=== PATIENT | female | born 1955 | race Caucasian/White ===

== ENCOUNTER 2019-03-05 20:07 | Emergency (ER) | payer OTHER ==
[~2019-03-05] VITALS: Ht 157.5 cm; Wt 59.0 kg
[~2019-03-05 20:07] MED LIST: CLONIDINE0.1 PO; DOXEPIN 50MG CA50 M1 PO; GABAPENTIN 100100 MG PO; IMITREX100 MG PO; ZANAFLEX4 MG PO; ZOFRAN ODT4 M1 PO
[2019-03-05] MEDS ORDERED: SYNTHROID137 MC1 PO (21:31)
[2019-03-05] MEDS ORDERED: LISINOPRIL20 MG PO (21:31)
[2019-03-05] MEDS ORDERED: LISINOPRIL10 MG PO (21:32)
[2019-03-05] MEDS ORDERED: HYDROCHLOROTH12.5 M1 PO (21:32)
[2019-03-05] MEDS ORDERED: DOXYCYCLINE 10100 MG PO (21:33)
[2019-03-05] MEDS ORDERED: OXCARBAZEPINE300 MG PO (21:52)
[2019-03-05 22:36] VITALS: BP 117/70
== END 2019-03-05 22:42 | disposition home or self-care (01) ==
LOC: ER 20:07
DX: G50.0 Trigeminal neuralgia (principal); G43.909 Migraine, unspecified, not intractable, without status migrainosus

== ENCOUNTER 2019-04-06 10:31 | Emergency (ER) | payer OTHER ==
[~2019-04-06] VITALS: Ht 210.8 cm; Wt 57.6 kg
[~2019-04-06 10:31] MED LIST changes: +DOXYCYCLINE 10100 MG PO; +HYDROCHLOROTH12.5 M1 PO; +LISINOPRIL10 MG PO; +LISINOPRIL20 MG PO; +OXCARBAZEPINE300 MG PO; +SYNTHROID137 MC1 PO
[2019-04-06 10:51] LABS: ABSOLUTE NEUTROPHILS 4.1 thou/uL (1.4-8.2); BASOPHILS 1.2 % (0.0-2.0); EOSINOPHILS 0.7 % (0.0-3.0); HEMATOCRIT 44.5 % (37.0-47.0); HEMOGLOBIN 14.9 gm/dL (12.0-15.0); LYMPHOCYTES 32.6 % (24.0-44.0); MCH 30.9 pg (26.0-34.0); MCHC 33.4 g/dL (28.0-37.0); MCV 92.4 fL (80.0-100.0); MONOCYTES 9.5 % (1.0-8.0); PLATELET COUNT 236 thou/uL (150-400); RBC 4.82 mil/uL (4.20-5.00); RDW 13.2 % (10.5-14.5); WBC 7.3 thou/uL (4.0-11.0)
[2019-04-06] MEDS ORDERED: ZESTORETIC 10-1 EACH PO (10:56)
[2019-04-06 11:03] LABS: ANION GAP 10 mmol/L (7-16); BUN 13 mg/dL (7-18); CHLORIDE 99 mmol/L (98-107); CO2 25 mmol/L (21-32); CREATININE 1.5 mg/dL (0.6-1.0); GLUCOSE 139 mg/dL (74-106); POTASSIUM 4.2 mmol/L (3.5-5.1); SODIUM 134 mmol/L (136-145)
[2019-04-06 11:07] LABS: TROPONIN-I <0.06 ng/mL (<0.06)
[2019-04-06 11:44] VITALS: BP 122/68
--- NOTE | 2019-04-06 15:29 | EKG ---
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
--- NOTE | 2019-04-07 08:11 | EKG ---
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
== END 2019-04-06 12:02 | disposition home or self-care (01) ==
LOC: ER 10:31
PROVIDERS: Emergency Medicine
DX: I47.1 Supraventricular tachycardia (principal); G43.909 Migraine, unspecified, not intractable, without status migrainosus; I10 Essential (primary) hypertension; E03.9 Hypothyroidism, unspecified; Z79.899 Other long term (current) drug therapy; Z90.89 Acquired absence of other organs

== ENCOUNTER 2019-08-24 17:42 | Emergency (ER) | payer OTHER ==
[~2019-08-24] VITALS: Ht 157.5 cm; Wt 56.7 kg
[~2019-08-24 17:42] MED LIST changes: +ZESTORETIC 10-1 EACH PO
[2019-08-24 18:02] LABS: ABSOLUTE NEUTROPHILS 4.9 thou/uL (1.4-8.2); BASOPHILS 1.1 % (0.0-2.0); EOSINOPHILS 0.7 % (0.0-3.0); HEMATOCRIT 42.2 % (37.0-47.0); LYMPHOCYTES 23.5 % (24.0-44.0); MCH 30.4 pg (26.0-34.0); MCHC 33.2 g/dL (28.0-37.0); MCV 91.6 fL (80.0-100.0); MONOCYTES 9.9 % (1.0-8.0); PLATELET COUNT 228 thou/uL (150-400); POLYS 64.8 % (36.0-66.0); RDW 13.5 % (10.5-14.5); WBC 7.6 thou/uL (4.0-11.0)
[2019-08-24 18:11] LABS: ANION GAP 10 mmol/L (7-16); BUN 20 mg/dL (7-18); CALCIUM 9.8 mg/dL (8.5-10.1); CHLORIDE 103 mmol/L (98-107); CO2 27 mmol/L (21-32); CREATININE 1.1 mg/dL (0.6-1.0); GLUCOSE 102 mg/dL (74-106); POTASSIUM 3.8 mmol/L (3.5-5.1); SODIUM 140 mmol/L (136-145)
[2019-08-24 18:21] LABS: SGOT 85 U/L (15-37); SGPT 68 U/L (30-65); TOTAL BILIRUBIN 0.3 mg/dL (<0.1-1.0); TOTAL PROTEIN 7.9 g/dL (6.4-8.2); TROPONIN-I <0.06 ng/mL (<0.06)
[2019-08-24 21:51] VITALS: BP 117/78
--- NOTE | 2019-08-28 12:54 | EKG ---
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
--- NOTE | 2019-08-28 12:54 | EKG ---
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
== END 2019-08-24 19:15 | disposition home or self-care (01) ==
LOC: ER 17:42
PROVIDERS: Emergency Medicine
DX: I47.1 Supraventricular tachycardia (principal); G43.909 Migraine, unspecified, not intractable, without status migrainosus; I10 Essential (primary) hypertension; E03.9 Hypothyroidism, unspecified; Z90.89 Acquired absence of other organs

== ENCOUNTER 2020-11-19 15:27 | Emergency (ER) | payer OTHER ==
[~2020-11-19] VITALS: Ht 157.5 cm; Wt 54.4 kg
[2020-11-19 16:33] LABS: ABSOLUTE NEUTROPHILS 6.3 thou/uL (1.4-8.2); BASOPHILS 0.6 % (0.0-2.0); EOSINOPHILS 0.1 % (0.0-3.0); HEMATOCRIT 41.6 % (37.0-47.0); HEMOGLOBIN 13.7 gm/dL (12.0-15.0); LYMPHOCYTES 16.9 % (24.0-44.0); MCH 30.5 pg (26.0-34.0); MCHC 32.8 g/dL (28.0-37.0); MCV 92.8 fL (80.0-100.0); MONOCYTES 6.4 % (1.0-8.0); PLATELET COUNT 217 thou/uL (150-400); RBC 4.48 mil/uL (4.20-5.00); RDW 12.6 % (10.5-14.5); WBC 8.3 thou/uL (4.0-11.0)
[2020-11-19 16:42] LABS: CALCIUM 8.9 mg/dL (8.5-10.1); CREATININE 0.8 mg/dL (0.6-1.0); POTASSIUM 4.4 mmol/L (3.5-5.1)
[2020-11-19 16:49] LABS: TOTAL BILIRUBIN 0.6 mg/dL (0.2-1.0); TOTAL PROTEIN 7.5 g/dL (6.4-8.2)
[2020-11-19 18:07] LABS: URINE BILIRUBIN NEGATIVE (Negative); URINE BLOOD NEGATIVE (Negative); URINE CLARITY CLEAR; URINE COLOR YELLOW; URINE GLUCOSE-RANDOM* NEGATIVE (Negative); URINE KETONES 1+ (Negative); URINE LEUKOCYTES-REFLEX NEGATIVE (Negative); URINE NITRITE-REFLEX NEGATIVE (Negative); URINE PROTEIN (DIPSTICK) NEGATIVE (Negative); URINE SPECIFIC GRAVITY 1.015 (1.005-1.035); URINE UROBILINOGEN 0.2 E.U./dl (0.2-1.0)
[2020-11-19] MEDS ORDERED: LEVSIN0.125 MG PO (19:36)
[2020-11-19 19:41] VITALS: BP 123/77
== END 2020-11-19 20:12 | disposition home or self-care (01) ==
LOC: ER 15:27
PROVIDERS: Physician Assistant
DX: R10.30 Lower abdominal pain, unspecified (principal); R19.7 Diarrhea, unspecified; G43.909 Migraine, unspecified, not intractable, without status migrainosus; I10 Essential (primary) hypertension; E03.9 Hypothyroidism, unspecified; Z90.89 Acquired absence of other organs; Z79.899 Other long term (current) drug therapy